=== PATIENT | female | born 1960 | race Hispanic/Latino ===

== ENCOUNTER → 2022-07-12 | Outpatient (CLI) | payer MEDICARE | LOC: MAMMO 12:33 | PROVIDERS: ATTEND Internal Medicine | DX: Z12.31 Encounter for screening mammogram for malignant neoplasm of breast (principal); Z13.820 Encounter for screening for osteoporosis | CPT/HCPCS: 77067; 77080 ==

== ENCOUNTER → 2024-09-26 | Outpatient (REF) | payer MEDICARE | LOC: MAMMO 13:05 | PROVIDERS: ATTEND Internal Medicine | DX: Z12.31 Encounter for screening mammogram for malignant neoplasm of breast (principal); Z13.820 Encounter for screening for osteoporosis | CPT/HCPCS: 77067; 77080 ==

== ENCOUNTER → 2024-10-18 | Outpatient (REF) | payer MEDICARE | LOC: MAMMO 08:33 | PROVIDERS: ATTEND Internal Medicine | DX: N63.20 Unspecified lump in the left breast, unspecified quadrant (principal) ==